=== PATIENT | male | born 1995 | race Caucasian/White ===

== ENCOUNTER 2016-10-27 18:32 | Emergency (ER) | payer MEDICAID, OTHER ==
[~2016-10-27] VITALS: Ht 162.6 cm; Wt 86.6 kg
[2016-10-27 18:42] VITALS: BP 121/63
--- NOTE | 2016-10-27 18:48 | NUR ---
Patient ambulated to bed 4. RN evaluating patient at bedside.
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
--- NOTE | 2016-10-27 18:51 | NUR ---
Yeni AT BEDSIDE.
[2016-10-27] MEDS ORDERED: NACL 0.9% 1,000 ML IV ONE (19:00)
[2016-10-27] MEDS ORDERED: fentaNYL 0.05 MG/ML VIAL IVP ONE (19:00)
[2016-10-27] MEDS ORDERED: ONDANSETRON 4 MG/2 ML VIAL IVP ONE (19:00)
--- NOTE | 2016-10-27 19:05 | NUR ---
Pt report given to CORNELIA CANNON. Transfer of care at this time.
--- NOTE | 2016-10-27 19:25 | NUR ---
Patient taken to CT via wheelchair per tech.
--- NOTE | 2016-10-27 19:27 | NUR ---
GOT REPORT FROM CORNELIA HENRY. PT. RESTING IN BED, NO S/SX OF THIS TIME.
[2016-10-27 19:28] LABS: BASOPHILS # (AUTO) 0.3 K/uL (0.00-0.22); EOSINOPHILS # (AUTO) 0.4 K/uL (0-0.4); EOSINOPHILS % (AUTO) 3.7 % (0.0-4.0); HEMOGLOBIN 15.7 g/dL (12.0-18.0); LYMPHOCYTES # (AUTO) 3.6 K/uL (2.0-11.5); LYMPHOCYTES % (AUTO) 32.7 % (20.5-51.1); MEAN CORPUSCULAR HEMOGLOBIN 26 pg (27-31); MEAN CORPUSCULAR HGB CONC 33 g/dL (33-37); MEAN CORPUSCULAR VOLUME 80 fL (80-94); MONOCYTES # (AUTO) 0.5 K/uL (0.8-1.0); MONOCYTES % (AUTO) 4.8 % (1.7-9.3); NEUTROPHILS # (AUTO) 6.3 K/uL (1.8-7.7); PLATELET COUNT (AUTO) 350 K/uL (140-450); RED BLOOD CELL COUNT(AUTO) 6.01 MIL/uL (4.20-6.10); WHITE BLOOD COUNT (AUTO) 11.1 K/uL (4.8-10.8)
--- NOTE | 2016-10-27 19:30 | NUR ---
Rik beckman in ED - 10/27/16 at 1933 by JAYLEEN Patient taken to CT via wheelchair per tech.
--- NOTE | 2016-10-27 19:34 | NUR ---
Patient back from CT via wheelchair per tech.
[2016-10-27 19:36] LABS: CALCIUM 9.4 mg/dL (8.5-10.1); CARBON DIOXIDE 27.1 mmol/L (21-32); CREATININE 1.2 mg/dL (0.6-1.3); POTASSIUM 4.1 mmol/L (3.5-5.1)
[2016-10-27 19:42] LABS: ALBUMIN 4.6 g/dL (3.4-5.0); MAGNESIUM 1.8 mg/dL (1.8-2.4); TOTAL BILIRUBIN 0.3 mg/dL (0.0-1.0); TOTAL PROTEIN, SERUM 8.2 g/dL (6.4-8.2)
[2016-10-27 19:45] LABS: LACTIC ACID 1.1 mmol/L (0.4-2.0)
--- NOTE | 2016-10-27 20:01 | NUR ---
Dr. Palafox evaluating patient at bedside.
[2016-10-27 20:32] LABS: APPEARANCE,URINE CLEAR (CLEAR); BILIRUBIN,URINE NEGATIVE (NEGATIVE); BLOOD, URINE TRACE-I (NEGATIVE); COLOR,URINE YELLOW (YELLOW); LEUKOCYTE ESTERASE ,URINE NEGATIVE (NEGATIVE); NITRITE, URINE NEGATIVE (NEGATIVE); PH,URINE 5.5 (5.0-9.0); PROTEIN,URINE NEGATIVE (NEGATIVE); UGLUCOSE NEGATIVE (NEGATIVE); UROBILINOGEN,URINE 0.2 EU/dL (0.2 - 1)
[2016-10-27 20:42] LABS: BACTERIA,URINE RARE /HPF (None Seen); RBC,URINE 0-3 /HPF (0-5); SQUAMOUS EPITHELIAL CELL,UR None Seen /LPF (0-3 (FEW)); WBC,URINE NONE SEEN /HPF (0-5)
--- NOTE | 2016-10-27 21:01 | NUR ---
Patient appears to be resting comfortably in bed. Vital Signs within normal limits. Respirations even and unlabored.
[2016-10-27 21:14] VITALS: BP 128/70
--- NOTE | 2016-10-27 21:14 | NUR ---
Patient discharged with v/s stable. Written and verbal after care instructions given and explained. Patient verbalized understanding. Ambulatory with steady gait. All questions addressed prior to discharge. Advised to follow up with PMD. FATHER TAKE PT. HOME
== END 2016-10-27 21:14 | disposition home or self-care (01) ==
LOC: MED 18:32
DX: R10.32 Left lower quadrant pain (principal); K62.5 Hemorrhage of anus and rectum
CPT/HCPCS: 36415; 74176; 80053; 81001; 83605; 83735; 85025; 86886; 86900; 86901; 87040; 96361; 96374; 96375; 99285; J2405; J3010; J7030